=== PATIENT | male | born 1965 | race American Indian/Alaskan Native ===

== ENCOUNTER 2017-03-03 12:09 | Emergency (ER) | payer BC | END 2017-03-03 12:20 | disposition left against medical advice (07) | LOC: ED 12:09 | DX: M79.605 Pain in left leg (principal); Z53.21 Procedure and treatment not carried out due to patient leaving prior to being seen by health care provider ==

== ENCOUNTER 2020-01-06 11:01 | Day surgery (SDC) | payer BC ==
[~2020-01-06 11:01] MED LIST: IOHEXOL 300 MG/ML 100ML IR ONE; WATER FOR IRRIG STERILE 2000 ML IR ONE
[2020-01-06] MEDS ORDERED: ACETAMINOPHEN 500 MG TAB PO ONE (12:05)
[2020-01-06] MEDS ORDERED: fentaNYL 100 MCG/2 ML INJ IV PRN (12:05)
[2020-01-06] MEDS ORDERED: ONDANSETRON 4 MG/2 ML INJ IV PRN (12:05)
--- NOTE | 2020-01-06 12:08 | Anesthesia Day of Surgery ---
Anesthesia Day of Surgery - Day of Surgery Patient Examined: Yes Patient H&P Reviewed: Yes Patient is NPO: Yes
[2020-01-06 12:12] LABS: INR 1.12 (0.87-1.13); Partial Thromboplastin Time 26.8 Sec. (24.2-36.6)
--- NOTE | 2020-01-06 12:12 | Anesthesia Consultation ---
Anesthesia Consult and Med Hx Date of service: 01/06/20 - Airway Anesthetic Teeth Evaluation: Good, Crowns, Bridges ROM Head & Neck: Adequate Mental/Hyoid Distance: Adequate Mallampati Class: Class III Intubation Access Assessment: Probably Good - Pre-Operative Health Status ASA Pre-Surgery Classification: ASA3 Proposed Anesthetic Plan: General - Pulmonary Hx Smoking: Yes (x smoker,[id number]) Hx Asthma: No COPD: No Hx Pneumonia: No Hx Sleep Apnea: Yes (DX SLEEP APNEA WITH CPAP USE.) - Cardiovascular System Hx Hypertension: Yes (2FS) Hx Coronary Artery Disease: No (States he had negative cardiac eval last year) Hx Heart Attack/AMI: No Hx Angina: No Hx Percutaneous Transluminal Coronary Angioplasty (PTCA): No Hx Cardia Arrhythmia: Yes (AFIB) Hx Pacemaker: No Hx Internal Defibrillator: No Hx Valvular Heart Disease: No Hx Heart Murmur: No Hx Peripheral Vascular Disease: No - Central Nervous System Hx Neuromuscular Disorder: No Hx Seizures: No CVA: No Hx Back Pain: Yes (NUMBNESS RT HAND and feet) Hx Psychiatric Problems: No - Gastrointestinal Hx Ulcer: No Hx Gastroesophageal Reflux Disease: Yes - Endocrine Hx Renal Disease: Yes (Stones) Hx End Stage Renal Disease: No Hx Cirrhosis: No Hx Liver Disease: No Hx Insulin Dependent Diabetes: No Hx Non-Insulin Dependent Diabetes: Yes Hx Thyroid Disease: Yes (Hyper) Hx Hypothyroidism: No Hx Hyperthyroidism: Yes - Hematic Hx Anemia: Yes (SLIGHTLY) Hx Sickle Cell Disease: No - Other Systems Hx Alcohol Use: Yes Hx Substance Use: No Hx Cancer: No Hx Obesity: Yes
[2020-01-06] MEDS ORDERED: MIDAZOLAM 2 MG/2 ML INJ IV NR (13:00)
[2020-01-06] MEDS ORDERED: LACTATED RINGERS 1,000 ML IV SCH (13:00)
[2020-01-06] MEDS ORDERED: dilTIAZem 60 MG TAB PO SCH (13:00)
[2020-01-06] MEDS ORDERED: PANTOPRAZOLE 40 MG TAB PO ONE (13:05)
[2020-01-06] MEDS ORDERED: MAGNESIUM OXIDE 400 MG TAB PO ONE (13:05)
[2020-01-06] MEDS ORDERED: propofoL 200 MG/20 ML VIAL IV ONE (13:07)
[2020-01-06] MEDS ORDERED: fentaNYL 100 MCG/2 ML INJ ONE ×2 (13:07→14:15)
[2020-01-06] MEDS ORDERED: LIDOCAINE MPF (2%) 20 MG/1 ML VIAL 5 ML ONE (13:08)
[2020-01-06] MEDS ORDERED: WATER FOR IRRIG STERILE 2000 ML IR ONE (13:32)
[2020-01-06] MEDS ORDERED: IOHEXOL 300 MG/ML 100ML IR ONE (13:34)
--- NOTE | 2020-01-06 14:14 | Short Stay Summary ---
Short Stay Documentation Date of service: 01/06/20 - History H&P: obtained from office - Allergies and Medications Current Medications: Allergies penicillin Allergy (Verified 04/08/15 08:31) Unknown shellfish derived Allergy (Verified 04/08/15 08:30) Unknown Home Medications Medication Instructions Recorded Confirmed Last Taken Type Clarinex-D 12 Hour Tablet 1 tab PO DAILY 04/08/15 01/06/20 01/05/20 History Diltiazem HCl [Cartia XT] 240 mg PO DAILY 04/08/15 12/28/19 01/05/20 History Rivaroxaban [Xarelto] 20 mg PO DAILY 04/08/15 01/06/20 12/30/19 History Digoxin 0.25 mg PO DAILY 12/25/19 12/25/19 01/05/20 History Eligen B12 Tablet 2 drops PO DAILY 12/25/19 12/25/19 01/05/20 History Losartan 50 mg PO DAILY 12/25/19 12/25/19 01/05/20 History Omeprazole 20 mg PO DAILY 12/25/19 12/25/19 01/05/20 History One-Daily Multi-Vitamin 1 tab PO DAILY 12/25/19 12/25/19 01/05/20 History Vitamin D3 LIQ 2 drops PO DAILY 12/25/19 12/25/19 01/05/20 History metFORMIN 1,000 mg PO QAM 12/25/19 12/25/19 01/05/20 History metFORMIN 500 mg PO QPM 12/25/19 12/25/19 01/05/20 History Tamsulosin [Flomax] 0.4 mg PO QDAY 01/05/20 01/05/20 01/05/20 History Active Medications Diltiazem HCl (Cardizem) 60 mg PO Q6HR IVA Last Admin: 01/06/20 12:40 Dose: 60 mg Documented by: Fentanyl (Sublimaze) 50 mcg IV Q5MIN PRN PRN Reason: Pain , Severe (7-10) Stop: 01/07/20 12:04 Lactated Ringer's (Lactated Ringers) 1,000 mls @ 125 mls/hr IV DIRECT IAV Last Admin: 01/06/20 12:40 Dose: 125 mls/hr Documented by: Levofloxacin/Dextrose (Levaquin 500mg/100ml) 500 mg in 100 mls @ 100 mls/hr IV PREOP NR; Protocol Stop: 01/06/20 14:29 Midazolam HCl (Versed) 2 mg IV PREOP NR Stop: 01/06/20 23:59 Last Admin: 01/06/20 12:45 Dose: 2 mg Documented by: Ondansetron HCl (Zofran) 4 mg IV ONCE PRN PRN Reason: Nausea And Vomiting - Brief post op/procedure progress note Date of procedure: 01/06/20 Pre-op diagnosis: rt prox ureteral stone Post-op diagnosis: other (IMPACTED) Procedure: cysto, rpg, ureteroscopy, stent---short internal string (6x 26cm) Anesthesia: GETA Surgeon: EZ OROZCO Estimated blood loss: none Condition: stable - Hospital course Hospital course: norco, macrobid,stone, post op info on chart - Disposition Condition at discharge: Stable Disposition: DC-01 TO HOME OR SELFCARE Short Stay Discharge Plan Follow up with: [facility] [Primary Care Provider] - 7 Days
--- NOTE | 2020-01-06 14:33 | Operative Report ---
PREOPERATIVE DIAGNOSIS: Proximal right ureteral stone, 7 mm. POSTOPERATIVE DIAGNOSIS: Proximal right ureteral stone, 7 mm. PROCEDURE: Cystoscopy, bilateral retrograde pyelograms, right ureteroscopy, holmium laser lithotripsy, basket stone extraction, double-J stent (6-Bangladeshi 26 cm with a short internal string). SURGEON: Moisés Madrid MD ANESTHESIA: General. ESTIMATED BLOOD LOSS: Minimal. FLUIDS: Crystalloid. COMPLICATIONS: No complications. INDICATIONS: This patient is a 54-year-old gentleman with a history of kidney stones. CT of abdomen and pelvis revealed a large 7 mm stone, bilateral, no hydronephrosis, positive degenerative joint disease of the spine. Also, the patient has diabetes and is on a blood thinner. His pain persisted on the right side. A 24-hour urine suggesting uric acid stones. Risks, benefits, and complications were explained. The patient agreed to proceed with surgical intervention. He ended up going back to another facility recently to get a CT due to pain and it indicated a right distal stone. Risks, benefits, and complications were explained. DESCRIPTION OF PROCEDURE: The patient was taken to the operative suite, placed in a supine position. After adequate general anesthesia, placed in a dorsal lithotomy position, prepped and draped in a sterile fashion. Pancystourethroscopy was performed with a 22-Bangladeshi Storz cystoscope, no urethral abnormalities. His prostate displayed some mild trilobar obstruction. Bladder, no tumors or stones were noted. Bilateral retrograde pyelograms were obtained with an 8-Bangladeshi [place] catheter and 8 mL of contrast, no filling defects or obstruction on the left. Right side proximal stone could be appreciated. Two 0.035 Glidewires were placed. Rigid ureteroscopy, no distal stone could be appreciated. Ureteroscopy up to the proximal ureter, obvious black stone could be appreciated. Using a 200-micron fiber holmium laser lithotripsy was performed. Fragmentation of the stone and was able to extract the fragments with a 3-Bangladeshi Danelle basket. Due to significant edema around the stone, a 6-Bangladeshi 26 cm double-J stent was placed and short internal string was left. Bladder was drained. Rectal exam was benign. He was extubated and taken to recovery room. He will go home on [place] and Macrobid. Follow up in the JOB# [id number] [facility]
[2020-01-06 15:11] VITALS: BP 147/87
--- NOTE | 2020-01-06 16:31 | Fluoroscopy Report ---
7 INTRAOPERATIVE IMAGES AT BILATERAL RETROGRADE URETHROGRAPHY INDICATION: RT CALCULUS OF KIDNEY. COMPARISON: No relevant prior imaging study available. FINDINGS: A label fuser tender image demonstrates a right upper pole calculus measuring approximately 1 cm. Subsequent image s demonstrate retrograde opacification of a nondilated right renal collecting system and ureter. The calculus is identified as a filling defect in a right upper pole calyx. Subsequent images demonstrate retrieval of the stone with a basket. Final images demonstrate a nondilated right intrarenal collect ing system. Subsequent images demonstrate retrograde opacification of a normal left intrarenal collec ting system and ureter. Note: 1.3 minutes of fluoroscopy time and 20 cc of Omnipaque 300. IMPRESSION: 1. Right upper pole renal calculus and a nondilated right renal collecting system and ureter. 2. Normal left renal collecting system and ureter.. Signer Name: Dwain Sultana MD Signed: 01/06/2020 4:27 PM Workstation Name: [id number]
--- NOTE | 2020-01-06 17:59 | Post Anesthesia Evaluation ---
- Post Anesthesia Evaluation Patient Participated: Yes Airway Patent: Yes Stable Respiratory Function: Yes Nausea/Vomiting: No Temp > 96.8F: Yes Pain Manageable: Yes Adequeate Hydration: Yes Anesthesia Complications: No Block Receding Appropriately: Not Applicable Patient on Ventilator: No
== END 2020-01-06 15:50 | disposition home or self-care (01) ==
LOC: OR 11:01
PROVIDERS: ATTEND Urology
DX: N20.1 Calculus of ureter (principal); G62.9 Polyneuropathy, unspecified; I42.9 Cardiomyopathy, unspecified; I48.91 Unspecified atrial fibrillation; I10 Essential (primary) hypertension; G47.30 Sleep apnea, unspecified; K21.9 Gastro-esophageal reflux disease without esophagitis; E66.9 Obesity, unspecified; M19.90 Unspecified osteoarthritis, unspecified site; E11.42 Type 2 diabetes mellitus with diabetic polyneuropathy; E05.90 Thyrotoxicosis, unspecified without thyrotoxic crisis or storm; Z72.89 Other problems related to lifestyle; Z88.0 Allergy status to penicillin; Z91.013 Allergy to seafood; Z79.899 Other long term (current) drug therapy; Z79.84 Long term (current) use of oral hypoglycemic drugs; Z87.891 Personal history of nicotine dependence; Z68.41 Body mass index [BMI] 40.0-44.9, adult
CPT/HCPCS: 36415; 52356; 74420; 82962; 85610; 85730; A4217; C1758; C1769; C2617; J1956; J2250; J2704; J3010; J7120; Q9967